=== PATIENT | male | born 1985 | race American Indian/Alaskan Native ===

== ENCOUNTER 2018-12-11 10:28 | Emergency (ER) | payer SELFPAY ==
[2018-12-11 11:36] VITALS: BP 123/82
[2018-12-11] MEDS ORDERED: KETOROLAC 10 MG TAB PO ONE (12:33)
[2018-12-11] MEDS ORDERED: DEXAMETHASONE 4 MG TAB PO ONE (12:33)
[2018-12-11] MEDS ORDERED: HYDROcodone/ACETAMINOPHEN 5-325 MG TAB PO ONE (12:35)
--- NOTE | 2018-12-11 12:35 | Emergency Department Report ---
ED ENT HPI - General Chief complaint: Dental/Oral Stated complaint: TOOTHACHE Time Seen by Provider: 12/11/18 12:26 Source: patient Mode of arrival: Ambulatory Limitations: No Limitations - History of Present Illness Initial comments: 33-year-old -[place] female patient without significant medical history presents for left upper tooth pain 4 days and left facial swelling times yesterday. Denies fever or redness. He states he has a dental appointment scheduled for today. MD complaint: tooth pain -: Sudden 1 - dental decay with significant dental caries and moderate erythema Consistency: constant Improves with: none Worsens with: eating Context- Dental: history of dental caries, poor dental care Associated Symptoms: other (left facial swelling ) - Related Data Previous Rx's Medication Instructions Recorded Last Taken Type Amoxicillin/Potassium Clav 1 each PO BID 7 Days #14 tablet 12/11/18 Unknown Rx [Augmentin 875-125 Tablet] Ketorolac [Toradol] 10 mg PO Q8H PRN 4 Days #14 tablet 12/11/18 Unknown Rx Allergies Allergy/AdvReac Type Severity Reaction Status Date / Time No Known Allergies Allergy Verified 12/11/18 12:49 ED Dental HPI - General Chief complaint: Dental/Oral Stated complaint: TOOTHACHE Time Seen by Provider: 12/11/18 12:26 Source: patient Mode of arrival: Ambulatory Limitations: No Limitations - Related Data Previous Rx's Medication Instructions Recorded Last Taken Type Amoxicillin/Potassium Clav 1 each PO BID 7 Days #14 tablet 12/11/18 Unknown Rx [Augmentin 875-125 Tablet] Ketorolac [Toradol] 10 mg PO Q8H PRN 4 Days #14 tablet 12/11/18 Unknown Rx Allergies Allergy/AdvReac Type Severity Reaction Status Date / Time No Known Allergies Allergy Verified 12/11/18 12:49 ED Review of Systems ROS: Stated complaint: TOOTHACHE Other details as noted in HPI Constitutional: denies: chills, fever Eyes: denies: eye pain, eye discharge, vision change ENT: as per HPI Respiratory: denies: cough, shortness of breath, wheezing Cardiovascular: denies: chest pain, palpitations Endocrine: no symptoms reported Gastrointestinal: denies: abdominal pain, nausea, diarrhea Genitourinary: denies: urgency, dysuria Musculoskeletal: denies: back pain, joint swelling, arthralgia Skin: denies: rash, lesions Neurological: denies: headache, weakness, paresthesias Psychiatric: denies: anxiety, depression Hematological/Lymphatic: denies: easy bleeding, easy bruising ED Past Medical Hx - Past Medical History Previous Medical History?: No - Surgical History Past Surgical History?: No - Social History Smoking Status: Current Every Day Smoker Substance Use Type: None - Medications Home Medications: Home Medications Medication Instructions Recorded Confirmed Last Taken Type Amoxicillin/Potassium Clav 1 each PO BID 7 Days #14 tablet 12/11/18 Unknown Rx [Augmentin 875-125 Tablet] Ketorolac [Toradol] 10 mg PO Q8H PRN 4 Days #14 tablet 12/11/18 Unknown Rx ED Physical Exam - General Limitations: No Limitations General appearance: alert, in no apparent distress - Head Head exam: Present: atraumatic - Eye Eye exam: Present: normal appearance - ENT ENT exam: Present: mucous membranes moist - Expanded ENT Exam Expanded Mouth exam: Present: tongue normal, other (mild left facial swelling noted with tenderness to palpation, but without erythema). Absent: drooling, trismus, muffled voice Teeth exam: Present: dental caries, dental tenderness #. Absent: fractured too th # Throat exam: Positive: normal inspection - Neck Neck exam: Absent: tenderness, lymphadenopathy - Respiratory Respiratory exam: Absent: normal lung sounds bilaterally - Cardiovascular Cardiovascular Exam: Present: regular rate, normal heart sounds ED Course Vital Signs 12/11/18 11:33 Temperature 99.0 F Pulse Rate 91 H Respiratory 18 Rate Blood Pressure 123/82 O2 Sat by Pulse 99 Oximetry ED Medical Decision Making - Medical Decision Making Patient here for dental pain. Significant dental decay noted with gingival er ythema noted on exam. No facial cellulitis noted. Patient afebrile. Patient given Decadron and NSAID for swelling and pain. Patient states he has an appointment with a dental specialist today. We'll send patient home with antibiotic Critical care attestation.: If time is entered above; I have spent that time in minutes in the direct care of this critically ill patient, excluding procedure time. ED Disposition Clinical Impression: Dental infection Disposition: TO HOME OR SELFCARE Is pt being admited?: No Does the pt Need Aspirin: No Condition: Stable Additional Instructions: Please follow up with your dental specialist as scheduled today Prescriptions: Amoxicillin/Potassium Clav [Augmentin 875-125 Tablet] 1 each PO BID 7 Days #14 tablet Ketorolac [Toradol] 10 mg PO Q8H PRN 4 Days #14 tablet PRN Reason: Pain
== END 2018-12-11 13:20 | disposition home or self-care (01) ==
LOC: ED 10:28
DX: K02.9 Dental caries, unspecified (principal)
CPT/HCPCS: 99282; J8540